=== PATIENT | male | born 1930 | race Caucasian/White ===

== ENCOUNTER 2016-10-19 11:23 | Inpatient (IN) | payer MEDICARE, BC ==
[2016-10-19] VITALS (462 sets, daily range): BP systolic 114–125; BP diastolic 63–67; PULSE 71–75; TEMP 98.5–98.7; O2SAT 79–99
[~2016-10-19] VITALS: Ht 172.7 cm; Wt 97.0 kg
[~2016-10-19 11:23] MED LIST: AMBIEN 5MG TABLE5 MG PO; ANTIVERT 25MG25 MG PO; ASACOL 400400 MG/TAB PO; ASACOL HD800 MG PO; ASACOL400 MG PO; ASPIRIN 32325 MG/TAB PO; ASPIRIN 81M81 MG/TA2 PO; ASPIRIN E.C.325 MG PO; BENADRYL25 M2 PO; BETAPACE 80MG80 MG PO; CELEBREX 200MG200 MG PO; CELEBREX200 MG PO; CEPHALEXIN500 M1 PO; CITRACAL ULTRAD PO; CITRUCEL WI2 GM/Dose PO; CITRUCEL WITH500 MG PO; COUMADIN 1MG1 MG/TAB PO; COUMADIN 2MG2 MG/TAB PO; COUMADIN 3MG3 MG/TAB PO; COUMADIN4 MG PO; CUTIVATE 60 ML60 ML TP; DARVOCET N; DIOVAN 80MG80 MG PO; DIOVAN80 M1 PO; DIOVAN80 MG PO; DOCUSATE CALCI100 MG PO; FLONASE NASAL S16 GM NS; LASIX 20MG TABL20 MG PO; LEVAQUIN250 MG PO; LORATADINE10 MG PO; LOVASTATIN; LOVASTATIN20 MG PO; LOVENOX; MACRODANTIN100; MEVACOR 20M20 MG/TAB PO; MIRALAX PA17 GM/Dose PO; MIRAPEX0.25 MG PO; MIRAPEX0.5 MG PO; NITROQUICK0.4 MG SL; NITROSTAT0.4 MG/TAB SL; NORCO 325 MG-51 TAB PO; OCEAN NASAL SPR45 ML NS; STOOL SOFTENER100 M2 PO; TOPROL XL 25MG25 MG PO; TOPROL XL 50MG50 MG PO; TOPROL XL50 MG PO; TYLENOL 325MG325 MG PO; TYLENOL 500MG500 MG PO; TYLENOL PM EXTR1 TA1 PO; WARFARIN; WARFARIN SODIUM3 MG PO; WARFARIN2 MG PO; ZITHROMAX 250M250 MG PO; [UNRECOGNIZED DRUG - CODE]; asacol; mirapex
[2016-10-19 12:13] LABS: BASO % 0.7 % (0.0-2.0); EOS # 0.3 (0.0-0.7); GRAN # 2.9 (1.4-6.5); GRAN % 63.5 % (42.2-75.2); HEMOGLOBIN 14.2 g/dl (13.5-18.0); LYMPH # 0.5 (1.2-3.4); LYMPH % 10.3 % (20.0-51.0); MEAN CELL VOLUME 79 fl (80.0-100.0); MEAN CORPUSCULAR HEMOGLOBIN 24 pg (27.0-31.0); MEAN CORPUSCULAR HGB CONC 31 g/dl (33.0-37.0); MEAN PLATELET VOLUME 10.4 fl (7.4-10.4); MONO # 0.8 (0.1-0.6); MONO % 18.1 % (1.7-9.3); PLATELET COUNT 127 K/mm3 (130-400); RED BLOOD COUNT 5.86 M/mm3 (4.20-5.60); REDCELL DISTRIBUTION WIDTH-CV 18.3 % (11.5-14.5); WHITE BLOOD COUNT 4.6 K/mm3 (4.8-10.8)
[2016-10-19 12:23] LABS: INR 2.2 (0.8-3.0); PROTHROMBIN TIME 24.6 SECONDS (9.7-12.8)
[2016-10-19 12:26] LABS: PARTIAL THROMBOPLASTIN TIME 41.2 SECONDS (26.0-37.0)
[2016-10-19 12:29] LABS: ADJUSTED CALCIUM 8.9 mg/dL (8.4-10.2); ALANINE AMINOTRANSFERASE 43 U/L (21-72); ALBUMIN 3.8 gm/dL (3.5-5.0); ALKALINE PHOSPHATASE 96 U/L (50-136); ANION GAP 9 mmol/L (7-16); BILIRUBIN,TOTAL 1.2 mg/dL (0.0-1.0); BLOOD UREA NITROGEN 22 mg/dL (9-20); CALCIUM 8.7 mg/dL (8.4-10.2); CARBON DIOXIDE 26 mmol/L (22-30); CHLORIDE 100 mmol/L (98-107); CREATININE, serum 0.86 mg/dL (0.66-1.25); GLUCOSE 110 mg/dL (74-106); POTASSIUM 4.3 mmol/L (3.4-5.0); SODIUM 134 mmol/L (137-145)
[2016-10-19 12:43] LABS: TROPONIN-I < 0.012 ng/mL (0.000-0.034)
[2016-10-20] VITALS (522 sets, daily range): BP systolic 97–152; BP diastolic 60–99; PULSE 63–80; TEMP 97.4–98.4; O2SAT 88–99
[2016-10-20 05:42] LABS: BASO % 0.4 % (0.0-2.0); EOS # 0.3 (0.0-0.7); EOS % 5.2 % (0-4.0); GRAN # 3.1 (1.4-6.5); GRAN % 55.8 % (42.2-75.2); LYMPH # 1.1 (1.2-3.4); MEAN CELL VOLUME 78 fl (80.0-100.0); MEAN CORPUSCULAR HEMOGLOBIN 25 pg (27.0-31.0); MEAN CORPUSCULAR HGB CONC 32 g/dl (33.0-37.0); MEAN PLATELET VOLUME 10.3 fl (7.4-10.4); MONO % 18.4 % (1.7-9.3); PLATELET COUNT 107 K/mm3 (130-400); RED BLOOD COUNT 5.23 M/mm3 (4.20-5.60); REDCELL DISTRIBUTION WIDTH-CV 17.7 % (11.5-14.5); WHITE BLOOD COUNT 5.6 K/mm3 (4.8-10.8)
[2016-10-20 05:46] LABS: INR 2.3 (0.8-3.0); PROTHROMBIN TIME 26.5 SECONDS (9.7-12.8)
[2016-10-20 05:53] LABS: ALBUMIN 3.2 gm/dL (3.5-5.0); BILIRUBIN,TOTAL 0.8 mg/dL (0.0-1.0); CALCIUM 8.4 mg/dL (8.4-10.2); CREATININE, serum 0.82 mg/dL (0.66-1.25); POTASSIUM 4.2 mmol/L (3.4-5.0); TOTAL PROTEIN 6.2 gm/dL (6.4-8.2)
[2016-10-21 04:15] VITALS: BP 135/68; PULSE 70; TEMP 98.4
[2016-10-21 07:25] VITALS: BP 157/85; PULSE 70; TEMP 97.7
[2016-10-21 07:27] LABS: HEMATOCRIT 43.9 % (42.0-52.0); HEMOGLOBIN 13.7 g/dl (13.5-18.0); MEAN CELL VOLUME 78 fl (80.0-100.0); MEAN CORPUSCULAR HEMOGLOBIN 24 pg (27.0-31.0); MEAN CORPUSCULAR HGB CONC 31 g/dl (33.0-37.0); MEAN PLATELET VOLUME 9.9 fl (7.4-10.4); PLATELET COUNT 119 K/mm3 (130-400); RED BLOOD COUNT 5.63 M/mm3 (4.20-5.60); REDCELL DISTRIBUTION WIDTH-CV 17.8 % (11.5-14.5); WHITE BLOOD COUNT 4.3 K/mm3 (4.8-10.8)
[2016-10-21 07:30] LABS: CALCIUM 8.8 mg/dL (8.4-10.2); CREATININE, serum 0.78 mg/dL (0.66-1.25)
[2016-10-21 07:33] LABS: ADD PATHOLOGY DIFF REVIEW NO
[2016-10-21 08:17] LABS: BAND 4 % (0-10); EOSINOPHIL 6 % (0-4); NEUTROPHILS 45 % (42.0-75.2); PLATELET ESTIMATE DECREASED (NORMAL); TOTAL CELLS COUNTED 100
[2016-10-21] MEDS ORDERED: ZITHROMAX500 M2 PO (09:43)
[2016-10-21] MEDS ORDERED: BETAPACEAF120 PO (09:44)
[2016-10-21] MEDS ORDERED: TESSALON P100 MG/CAP PO (09:45)
[2016-10-21] MEDS ORDERED: PREDNISONE20 MG PO (09:47)
[2016-10-21] MEDS ORDERED: COUMADIN 3MG3 MG/TAB PO (10:12)
[2016-10-21] MEDS ORDERED: ZESTRIL2.5 MG PO (10:13)
[2016-10-21 11:03] LABS: INR 2.2 (0.8-3.0); PROTHROMBIN TIME 25.3 SECONDS (9.7-12.8)
[2016-10-21 12:24] VITALS: BP 140/73; PULSE 71; TEMP 97.9
[2016-10-21] MEDS ORDERED: LOVENOX 100100 MG/ML SQ (12:41)
== END 2016-10-21 14:12 | DRG 310 ==
LOC: COL.ER 11:23 → ICU 13:54 → MEDICAL 10-20 14:24
PROVIDERS: Emergency Medicine; Internal Medicine; Nurse Practitioner Family
DX: I48.0 Paroxysmal atrial fibrillation (principal); I10 Essential (primary) hypertension; G47.33 Obstructive sleep apnea (adult) (pediatric); J20.8 Acute bronchitis due to other specified organisms; Z79.01 Long term (current) use of anticoagulants; Z95.2 Presence of prosthetic heart valve
CPT/HCPCS: 99223-AI; 99232-AI; 99239; J0456; J1160; J1650; J7030; J7050; J7512

== ENCOUNTER 2016-10-23 10:33 | Emergency (ER) | payer MEDICARE, BC ==
[2007-01-22 07:43] VITALS: BP 150/77
[~2016-10-23] VITALS: Ht 172.7 cm; Wt 96.8 kg
[~2016-10-23 10:33] MED LIST changes: +BETAPACEAF120 PO; +LOVENOX 100100 MG/ML SQ; +PREDNISONE20 MG PO; +TESSALON P100 MG/CAP PO; +ZESTRIL2.5 MG PO; +ZITHROMAX500 M2 PO
[2016-10-23 10:35] VITALS: TEMP 98.4
[2016-10-23 11:27] LABS: PH 7 (5-8); SQUAMOUS EPITHELIAL None Seen /hpf; URINE APPEARANCE Clear; URINE BACTERIA None Seen /hpf; URINE BILIRUBIN Negative (NEGATIVE); URINE BLOOD 2+ (NEGATIVE); URINE COLOR Yellow; URINE GLUCOSE Negative (NEGATIVE); URINE KETONE Negative (NEGATIVE); URINE UROBILINOGEN Negative (NEGATIVE); URINE WBC 0-2 /hpf
[2016-10-23 11:34] LABS: ADJUSTED CALCIUM 9.2 mg/dL (8.4-10.2); ALANINE AMINOTRANSFERASE 64 U/L (21-72); ALKALINE PHOSPHATASE 90 U/L (50-136); ANION GAP 10 mmol/L (7-16); BILIRUBIN,TOTAL 1.2 mg/dL (0.0-1.0); BLOOD UREA NITROGEN 24 mg/dL (9-20); CALCIUM 9.2 mg/dL (8.4-10.2); CARBON DIOXIDE 26 mmol/L (22-30); CHLORIDE 95 mmol/L (98-107); CREATININE, serum 0.84 mg/dL (0.66-1.25); GLUCOSE 134 mg/dL (74-106); POTASSIUM 4.7 mmol/L (3.4-5.0); SODIUM 130 mmol/L (137-145); TOTAL PROTEIN 7.4 gm/dL (6.4-8.2)
[2016-10-23 11:35] LABS: PROTHROMBIN TIME 38.9 SECONDS (9.7-12.8)
[2016-10-23 11:45] LABS: INR 3.4 (0.8-3.0)
[2016-10-23 11:46] LABS: B-TYPE NATRIURETIC PEPTIDE 235 pg/mL (0-450)
[2016-10-23 11:47] LABS: BASO % 0.3 % (0.0-2.0); EOS # 0.2 (0.0-0.7); EOS % 2.6 % (0-4.0); GRAN # 4.2 (1.4-6.5); GRAN % 71.9 % (42.2-75.2); HEMATOCRIT 46.6 % (42.0-52.0); HEMOGLOBIN 14.9 g/dl (13.5-18.0); LYMPH # 0.8 (1.2-3.4); LYMPH % 13.1 % (20.0-51.0); MEAN CELL VOLUME 76 fl (80.0-100.0); MEAN CORPUSCULAR HEMOGLOBIN 24 pg (27.0-31.0); MEAN CORPUSCULAR HGB CONC 32 g/dl (33.0-37.0); MEAN PLATELET VOLUME 9.9 fl (7.4-10.4); MONO # 0.7 (0.1-0.6); MONO % 11.8 % (1.7-9.3); PLATELET COUNT 134 K/mm3 (130-400); RED BLOOD COUNT 6.13 M/mm3 (4.20-5.60); REDCELL DISTRIBUTION WIDTH-CV 18.3 % (11.5-14.5); WHITE BLOOD COUNT 5.9 K/mm3 (4.8-10.8)
[2016-10-23 11:57] LABS: TROPONIN-I < 0.012 ng/mL (0.000-0.034)
[2016-10-23 12:47] LABS: INFLUENZA B NEGATIVE
[2016-10-23] MEDS ORDERED: CEFTIN500 MG PO (13:49)
[2016-10-23 14:50] VITALS: BP 155/85; PULSE 74
== END 2016-10-23 16:43 | disposition home or self-care (01) ==
LOC: COL.ER 10:33
PROVIDERS: Emergency Medicine
DX: J18.9 Pneumonia, unspecified organism (principal); R42 Dizziness and giddiness; I48.91 Unspecified atrial fibrillation; Z79.01 Long term (current) use of anticoagulants; I10 Essential (primary) hypertension; Z95.2 Presence of prosthetic heart valve; I25.10 Atherosclerotic heart disease of native coronary artery without angina pectoris; Z95.0 Presence of cardiac pacemaker
CPT/HCPCS: J7030

== ENCOUNTER → 2016-11-11 | Outpatient (CLI) | payer MEDICARE, BC ==
[~2016-11-11] MED LIST changes: +ARNUITY IH; +CEFTIN500 MG PO; +CLARITIN 1010 MG/TAB PO; +LEXAPRO 10MG10 MG PO; +LEXAPRO 5MG5 MG PO; +MELATONIN5 M1 SL
[2016-11-11 22:42] LABS: BASO # 0.1 (0.0-0.2); BASO % 0.7 % (0.0-2.0); EOS # 0.4 (0.0-0.7); GRAN # 4.5 (1.4-6.5); GRAN % 61.6 % (42.2-75.2); HEMATOCRIT 45.8 % (42.0-52.0); HEMOGLOBIN 14.7 g/dl (13.5-18.0); LYMPH # 1.5 (1.2-3.4); LYMPH % 21.3 % (20.0-51.0); MEAN CELL VOLUME 80 fl (80.0-100.0); MEAN CORPUSCULAR HEMOGLOBIN 26 pg (27.0-31.0); MEAN CORPUSCULAR HGB CONC 32 g/dl (33.0-37.0); MEAN PLATELET VOLUME 10.2 fl (7.4-10.4); MONO # 0.8 (0.1-0.6); MONO % 11.1 % (1.7-9.3); PLATELET COUNT 149 K/mm3 (130-400); RED BLOOD COUNT 5.74 M/mm3 (4.20-5.60); REDCELL DISTRIBUTION WIDTH-CV 19.4 % (11.5-14.5); WHITE BLOOD COUNT 7.2 K/mm3 (4.8-10.8)
[2016-11-11 22:50] LABS: PH 6 (5-8); SQUAMOUS EPITHELIAL 0-2 /hpf; URINE APPEARANCE Clear; URINE BACTERIA None Seen /hpf; URINE BILIRUBIN Negative (NEGATIVE); URINE BLOOD 2+ (NEGATIVE); URINE COLOR Yellow; URINE GLUCOSE Negative (NEGATIVE); URINE KETONE Negative (NEGATIVE); URINE RBC 20-50 /hpf; URINE UROBILINOGEN Negative (NEGATIVE)
[2016-11-11 22:52] LABS: ADJUSTED CALCIUM 9.4 mg/dL (8.4-10.2); ALBUMIN 3.7 gm/dL (3.5-5.0); BILIRUBIN,TOTAL 1.4 mg/dL (0.0-1.0); CALCIUM 9.2 mg/dL (8.4-10.2); CREATININE, serum 0.87 mg/dL (0.66-1.25); POTASSIUM 5.4 mmol/L (3.4-5.0); TOTAL PROTEIN 6.8 gm/dL (6.4-8.2)
== END ==
LOC: ZCOL.LAB 16:05
PROVIDERS: Nurse Practitioner Family
DX: R51 Headache (principal); R41.0 Disorientation, unspecified; R63.4 Abnormal weight loss

== ENCOUNTER 2016-12-17 19:45 | Inpatient (IN) | payer MEDICARE, BC ==
[~2016-12-17] VITALS: Ht 172.7 cm; Wt 98.0 kg
[~2016-12-17 19:45] MED LIST changes: -ARNUITY IH; -CLARITIN 1010 MG/TAB PO; -LEXAPRO 10MG10 MG PO; -LEXAPRO 5MG5 MG PO; -MELATONIN5 M1 SL
[2016-12-17 20:42] LABS: BASO # 0.1 (0.0-0.2); BASO % 0.7 % (0.0-2.0); EOS # 0.5 (0.0-0.7); EOS % 5.8 % (0-4.0); GRAN # 5.7 (1.4-6.5); GRAN % 67.5 % (42.2-75.2); HEMATOCRIT 38.2 % (42.0-52.0); HEMOGLOBIN 12.3 g/dl (13.5-18.0); LYMPH # 1.1 (1.2-3.4); LYMPH % 13.1 % (20.0-51.0); MEAN CELL VOLUME 81 fl (80.0-100.0); MEAN CORPUSCULAR HEMOGLOBIN 26 pg (27.0-31.0); MEAN CORPUSCULAR HGB CONC 32 g/dl (33.0-37.0); MEAN PLATELET VOLUME 9.2 fl (7.4-10.4); MONO # 1.1 (0.1-0.6); MONO % 12.5 % (1.7-9.3); PLATELET COUNT 163 K/mm3 (130-400); REDCELL DISTRIBUTION WIDTH-CV 18.6 % (11.5-14.5); WHITE BLOOD COUNT 8.4 K/mm3 (4.8-10.8)
[2016-12-17 20:52] LABS: ADJUSTED CALCIUM 8.8 mg/dL (8.4-10.2); ALANINE AMINOTRANSFERASE 32 U/L (21-72); ALBUMIN 3.7 gm/dL (3.5-5.0); ALKALINE PHOSPHATASE 83 U/L (50-136); ANION GAP 11 mmol/L (7-16); BLOOD UREA NITROGEN 24 mg/dL (9-20); CALCIUM 8.6 mg/dL (8.4-10.2); CARBON DIOXIDE 23 mmol/L (22-30); CHLORIDE 94 mmol/L (98-107); GLUCOSE 133 mg/dL (74-106); POTASSIUM 4.7 mmol/L (3.4-5.0); SODIUM 128 mmol/L (137-145); TOTAL PROTEIN 6.8 gm/dL (6.4-8.2)
[2016-12-17 21:02] LABS: INR 2.5 (0.8-3.0); PARTIAL THROMBOPLASTIN TIME 41.5 SECONDS (26.0-37.0); PROTHROMBIN TIME 28.1 SECONDS (9.7-12.8)
[2016-12-17 21:04] LABS: B-TYPE NATRIURETIC PEPTIDE 446 pg/mL (0-450); TROPONIN-I < 0.012 ng/mL (0.000-0.034)
[2016-12-17] MEDS ORDERED: MELATONIN5 M1 SL (22:32)
[2016-12-17] MEDS ORDERED: CLARITIN 1010 MG/TAB PO (22:38)
[2016-12-17] MEDS ORDERED: LEXAPRO 5MG5 MG PO (22:40)
[2016-12-17] MEDS ORDERED: MEVACOR 20M20 MG/TAB PO (22:42)
[2016-12-17] MEDS ORDERED: LEXAPRO 10MG10 MG PO (22:42)
[2016-12-17] MEDS ORDERED: ARNUITY IH (22:43)
[2016-12-17] MEDS ORDERED: TYLENOL 325MG325 MG PO (22:45)
[2016-12-17] MEDS ORDERED: COUMADIN 2MG2 MG/TAB PO (22:49)
[2016-12-17] MEDS ORDERED: COUMADIN 1MG1 MG/TAB PO (22:50)
[2016-12-17 23:11] VITALS: BP 163/77; PULSE 68; TEMP 98.5
[2016-12-18 03:24] VITALS: BP 143/86; PULSE 73; TEMP 97.5
[2016-12-18 07:32] VITALS: BP 154/82; PULSE 70; TEMP 98
[2016-12-18 07:35] LABS: INR 2.5 (0.8-3.0); PROTHROMBIN TIME 28.8 SECONDS (9.7-12.8)
[2016-12-18 07:39] LABS: BASO # 0.1 (0.0-0.2); BASO % 0.8 % (0.0-2.0); EOS # 0.5 (0.0-0.7); EOS % 6.9 % (0-4.0); GRAN # 4.7 (1.4-6.5); GRAN % 61.1 % (42.2-75.2); LYMPH # 1.4 (1.2-3.4); LYMPH % 18.2 % (20.0-51.0); MEAN CELL VOLUME 80 fl (80.0-100.0); MEAN CORPUSCULAR HGB CONC 32 g/dl (33.0-37.0); MEAN PLATELET VOLUME 9.6 fl (7.4-10.4); MONO # 0.9 (0.1-0.6); MONO % 12.3 % (1.7-9.3); PLATELET COUNT 161 K/mm3 (130-400); RED BLOOD COUNT 4.53 M/mm3 (4.20-5.60); REDCELL DISTRIBUTION WIDTH-CV 18.9 % (11.5-14.5); WHITE BLOOD COUNT 7.7 K/mm3 (4.8-10.8)
[2016-12-18 07:40] LABS: HEMATOCRIT 36.4 % (42.0-52.0); HEMOGLOBIN 11.7 g/dl (13.5-18.0); MEAN CORPUSCULAR HEMOGLOBIN 26 pg (27.0-31.0)
[2016-12-18 07:49] LABS: CREATININE, serum 0.69 mg/dL (0.66-1.25); POTASSIUM 4.5 mmol/L (3.4-5.0)
[2016-12-18 11:48] VITALS: BP 157/81; PULSE 72; TEMP 97.8
[2016-12-18 16:02] VITALS: BP 150/93; PULSE 70; TEMP 97.7
[2016-12-18 20:08] VITALS: BP 145/69; PULSE 70; TEMP 97.9
[2016-12-19 00:07] VITALS: BP 149/76; PULSE 80; TEMP 97.1
[2016-12-19 05:50] VITALS: BP 129/77; PULSE 75; TEMP 97.9
[2016-12-19 07:02] LABS: HEMATOCRIT 38.1 % (42.0-52.0); HEMOGLOBIN 12.3 g/dl (13.5-18.0)
[2016-12-19 07:16] LABS: INR 2.2 (0.8-3.0)
[2016-12-19 07:26] LABS: CALCIUM 8.9 mg/dL (8.4-10.2); CREATININE, serum 0.72 mg/dL (0.66-1.25); POTASSIUM 4.5 mmol/L (3.4-5.0)
[2016-12-19 08:52] VITALS: BP 144/73; PULSE 72; TEMP 98.6
[2016-12-19 13:23] VITALS: BP 115/62; PULSE 70; TEMP 97.7
== END 2016-12-19 16:37 | disposition home or self-care (01) | DRG 200 ==
LOC: COL.ER 19:45 → MEDICAL 21:26
PROVIDERS: Family Medicine; Internal Medicine
PROC: 0W9B3ZX Drainage of Left Pleural Cavity, Percutaneous Approach, Diagnostic (ICD-10-PCS; principal; 2016-12-18)
DX: S27.1XXA Traumatic hemothorax, initial encounter (principal); J90 Pleural effusion, not elsewhere classified; S22.42XA Multiple fractures of ribs, left side, initial encounter for closed fracture; E87.1 Hypo-osmolality and hyponatremia; K51.90 Ulcerative colitis, unspecified, without complications; I10 Essential (primary) hypertension; I48.91 Unspecified atrial fibrillation; Z95.2 Presence of prosthetic heart valve; Z85.46 Personal history of malignant neoplasm of prostate; Z95.0 Presence of cardiac pacemaker; Z79.01 Long term (current) use of anticoagulants; W18.30XA Fall on same level, unspecified, initial encounter; D50.0 Iron deficiency anemia secondary to blood loss (chronic)
CPT/HCPCS: 99223-AI; 99232-AI; 99239; A9284; J7030

== ENCOUNTER → 2017-04-14 | Outpatient (CLI) | payer MEDICARE, BC ==
[~2017-04-14] MED LIST changes: +ARNUITY IH; +CLARITIN 1010 MG/TAB PO; +LEXAPRO 10MG10 MG PO; +LEXAPRO 5MG5 MG PO; +MELATONIN5 M1 SL
[2017-04-14 15:24] LABS: BASO # 0.1 (0.0-0.2); BASO % 1.2 % (0.0-2.0); EOS # 0.7 (0.0-0.7); EOS % 9.6 % (0-4.0); GRAN # 4.1 (1.4-6.5); GRAN % 56.9 % (42.2-75.2); HEMATOCRIT 47.6 % (42.0-52.0); HEMOGLOBIN 15.1 g/dl (13.5-18.0); LYMPH # 1.2 (1.2-3.4); LYMPH % 16.3 % (20.0-51.0); MEAN CELL VOLUME 81 fl (80.0-100.0); MEAN CORPUSCULAR HEMOGLOBIN 26 pg (27.0-31.0); MEAN CORPUSCULAR HGB CONC 32 g/dl (33.0-37.0); MEAN PLATELET VOLUME 10.5 fl (7.4-10.4); MONO # 1.1 (0.1-0.6); MONO % 15.7 % (1.7-9.3); PLATELET COUNT 156 K/mm3 (130-400); RED BLOOD COUNT 5.89 M/mm3 (4.20-5.60); REDCELL DISTRIBUTION WIDTH-CV 17.4 % (11.5-14.5); WHITE BLOOD COUNT 7.3 K/mm3 (4.8-10.8)
[2017-04-14 15:30] LABS: ADJUSTED CALCIUM 9.2 mg/dL (8.4-10.2); ALBUMIN 3.8 gm/dL (3.5-5.0); CREATININE, serum 0.77 mg/dL (0.66-1.25); TOTAL PROTEIN 6.8 gm/dL (6.4-8.2)
[2017-04-14 19:20] LABS: PH 7 (5-8); SQUAMOUS EPITHELIAL 0-2 /hpf; URINE APPEARANCE Clear; URINE BACTERIA None Seen /hpf; URINE BILIRUBIN Negative (NEGATIVE); URINE BLOOD 2+ (NEGATIVE); URINE COLOR Yellow; URINE GLUCOSE Negative (NEGATIVE); URINE KETONE Negative (NEGATIVE); URINE UROBILINOGEN Negative (NEGATIVE); URINE WBC 0-2 /hpf
== END ==
LOC: ZCOL.LAB 13:39
PROVIDERS: Nurse Practitioner Family
DX: R31.9 Hematuria, unspecified (principal); R42 Dizziness and giddiness

== ENCOUNTER → 2017-04-28 | Outpatient (CLI) | payer MEDICARE, BC ==
[2017-04-28 15:29] LABS: CALCIUM 9.3 mg/dL (8.4-10.2); CREATININE, serum 0.78 mg/dL (0.66-1.25); POTASSIUM 4.8 mmol/L (3.4-5.0)
== END ==
LOC: ZCOL.LAB 15:02
PROVIDERS: Nurse Practitioner Family
DX: E87.1 Hypo-osmolality and hyponatremia (principal)

== ENCOUNTER → 2017-05-04 | Outpatient (CLI) | payer MEDICARE, BC | LOC: COL.RAD 08:07 | DX: G31.89 Other specified degenerative diseases of nervous system (principal); J34.89 Other specified disorders of nose and nasal sinuses; R53.1 Weakness ==

== ENCOUNTER → 2018-07-13 | Outpatient (CLI) | payer MEDICARE, BC ==
[2018-07-13 16:56] LABS: CALCIUM 9.1 mg/dL (8.4-10.2); CREATININE, serum 0.72 mg/dL (0.66-1.25); POTASSIUM 5.3 mmol/L (3.4-5.0)
== END ==
LOC: ZCOL.LAB 16:46
PROVIDERS: Internal Medicine
DX: E87.1 Hypo-osmolality and hyponatremia (principal)